=== PATIENT | male | born 1995 | race Caucasian/White ===

== ENCOUNTER 2017-07-04 08:04 | Day surgery (SDC) | payer OTHER, MEDICAID ==
[2017-07-04] MEDS ORDERED: LIDOCAINE 4% SOLUTION 50 ML BTL (09:07)
[2017-07-04] MEDS ORDERED: MIDAZOLAM 1 MG/ML 2 ML INJ ×2 (09:47)
[2017-07-04] MEDS ORDERED: FENTAnyl 50 MCG/ML VIAL (09:47)
== END 2017-07-04 10:47 | disposition home or self-care (01) ==
LOC: GIL 08:04
DX: K21.0 Gastro-esophageal reflux disease with esophagitis (principal)
CPT/HCPCS: 43239; 88305; 88312; 88313

== ENCOUNTER 2017-08-29 14:26 | Inpatient (IN) | payer OTHER ==
[2017-08-29] MEDS ORDERED: ONDANSETRON 4 MG TAB PO (17:00)
[2017-08-29] MEDS ORDERED: METOCLOPRAMIDE 10 MG INJ IV (17:00)
[2017-08-29] MEDS ORDERED: ONDANSETRON 4 MG INJ IV (17:00)
[2017-08-29] MEDS ORDERED: HYDROCODONE/APAP (5/325) TAB PO (17:00)
[2017-08-29] MEDS: CEFTRIAXONE 1 GM/50 ML (PMX) 50 ML IVPB (17:54)
[2017-08-29] MEDS: ACETAMINOPHEN 325 MG TAB PO (20:12)
[2017-08-30] MEDS: ACETAMINOPHEN 325 MG TAB PO ×2 (02:17→17:44)
[2017-08-30 04:13] LABS: ADD MAN DIFF? NO
[2017-08-30 04:14] LABS: BASOPHILS % 0.2 % (0.0-2.0); HEMOGLOBIN 13.9 g/dl (14.0-18.0); LYMPHOCYTES # 0.7 10^3/ul (0.8-2.9); LYMPHOCYTES % 5.9 % (15.0-51.0); MEAN CORPUSCULAR HEMOGLOBIN 29.1 pg (29.0-33.0); MEAN CORPUSCULAR HGB CONC 33.9 g/dl (32.0-37.0); MEAN CORPUSCULAR VOLUME 85.8 fl (82.0-101.0); MEAN PLATELET VOLUME 9.9 fl (7.4-10.4); MONOCYTE # 0.6 10^3/ul (0.3-0.9); MONOCYTES % 4.7 % (0.0-11.0); NEUTROPHIL # 11.1 10^3/ul (1.6-7.5); NEUTROPHILS % 88.9 % (39.0-77.0); PLATELET COUNT 166 10^3/UL (140-415); RED BLOOD COUNT 4.78 10^6/ul (4.70-6.10); RED CELL DISTRIBUTION WIDTH 13.4 % (11.5-14.5)
[2017-08-30 04:14] LABS: WHITE BLOOD COUNT 12.5 10^3/ul (4.8-10.8)
[2017-08-30 04:38] LABS: ANION GAP 16 (8-16); BLOOD UREA NITROGEN 16 mg/dl (7-20); CALCIUM 9.3 mg/dl (8.4-10.2); CARBON DIOXIDE 26 mmol/L (21-31); CHLORIDE 104 mmol/L (97-110); CREATININE 0.94 mg/dl (0.61-1.24); GLUCOSE 120 mg/dl (70-220); MAGNESIUM 1.9 mg/dl (1.7-2.5); PHOSPHORUS 2.6 mg/dl (2.5-4.9); POTASSIUM 4.1 mmol/L (3.5-5.1); SODIUM 142 mmol/L (135-144)
[2017-08-30] MEDS: ENOXAPARIN 40 MG/0.4 ML SYG SC (09:00)
[2017-08-30] MEDS ORDERED: VANCOMYCIN IV PER PHARMACY XX (12:30)
[2017-08-30] MEDS: VANCOMYCIN 1.5 GM in SOD CHLORIDE 0.9% 250 ML IVPB (14:22)
[2017-08-30] MEDS: SOD CHLORIDE 0.9% 100 ML (14:59)
[2017-08-30] MEDS: IOHEXOL 300MG/ML 150 ML BTL (14:59)
[2017-08-30] MEDS: VANCOMYCIN 1 GM 250 ML IVPB (22:28)
[2017-08-31] MEDS: VANCOMYCIN 1 GM 250 ML IVPB ×2 (06:15→14:40)
[2017-08-31 06:21] LABS: ADD MAN DIFF? NO
[2017-08-31 06:27] LABS: WHITE BLOOD COUNT 7.9 10^3/ul (4.8-10.8)
[2017-08-31 06:27] LABS: BASOPHILS % 0.4 % (0.0-2.0); EOSINOPHILS # 0.1 10^3/ul (0.0-0.5); EOSINOPHILS % 1.1 % (0.0-7.0); HEMATOCRIT 41.1 % (42.0-52.0); HEMOGLOBIN 14.1 g/dl (14.0-18.0); LYMPHOCYTES # 1.8 10^3/ul (0.8-2.9); LYMPHOCYTES % 22.9 % (15.0-51.0); MEAN CORPUSCULAR HEMOGLOBIN 29.3 pg (29.0-33.0); MEAN CORPUSCULAR HGB CONC 34.3 g/dl (32.0-37.0); MEAN CORPUSCULAR VOLUME 85.4 fl (82.0-101.0); MEAN PLATELET VOLUME 10.8 fl (7.4-10.4); MONOCYTE # 1.1 10^3/ul (0.3-0.9); MONOCYTES % 13.4 % (0.0-11.0); NEUTROPHIL # 4.9 10^3/ul (1.6-7.5); NEUTROPHILS % 61.9 % (39.0-77.0); PLATELET COUNT 184 10^3/UL (140-415); RED BLOOD COUNT 4.81 10^6/ul (4.70-6.10); RED CELL DISTRIBUTION WIDTH 13.2 % (11.5-14.5)
[2017-08-31 06:47] LABS: ANION GAP 15 (8-16); BLOOD UREA NITROGEN 13 mg/dl (7-20); CALCIUM 9.2 mg/dl (8.4-10.2); CARBON DIOXIDE 28 mmol/L (21-31); CHLORIDE 104 mmol/L (97-110); CREATININE 0.88 mg/dl (0.61-1.24); GLUCOSE 108 mg/dl (70-220); MAGNESIUM 2.1 mg/dl (1.7-2.5); PHOSPHORUS 3.5 mg/dl (2.5-4.9); POTASSIUM 3.9 mmol/L (3.5-5.1); SODIUM 143 mmol/L (135-144)
[2017-08-31] MEDS: ENOXAPARIN 40 MG/0.4 ML SYG SC (09:00)
[2017-08-31 14:14] LABS: VANCOMYCIN,TROUGH 7.6 ug/ml (10.0-20.0)
[2017-08-31] MEDS: IOHEXOL 300MG/ML 30 ML BTL (14:42)
[2017-08-31] MEDS: SOD CHLORIDE 0.9% 500 ML (14:42)
[2017-08-31] MEDS ORDERED: LIDOCAINE 2% JELLY 30 ML TOP (15:00)
[2017-08-31] MEDS: NACL 0.9% 3 ML SYG IV (22:35)
[2017-08-31] MEDS: VANCOMYCIN 1.25 GM in SOD CHLORIDE 0.9% 250 ML IVPB (22:35)
[2017-09-01] MEDS: VANCOMYCIN 1.25 GM in SOD CHLORIDE 0.9% 250 ML IVPB ×2 (05:13→13:56)
[2017-09-01] MEDS: DOCUSATE SODIUM 100 MG CAP PO (11:09)
[2017-09-01] MEDS: MAGNESIUM HYDROXIDE 30ML CUP PO (11:09)
== END 2017-09-01 20:50 | DRG 698 ==
LOC: MS2 08-30 01:59
DX: T83.511A Infection and inflammatory reaction due to indwelling urethral catheter, initial encounter (principal); A41.1 Sepsis due to other specified staphylococcus; N39.0 Urinary tract infection, site not specified; N35.9 Urethral stricture, unspecified
CPT/HCPCS: 72192; 74177; 80048; 80202; 83605; 83735; 84100; 85025; 87040; 87086

== ENCOUNTER 2017-09-17 08:36 | Day surgery (SDC) | payer OTHER ==
[~2017-09-17 08:36] MED LIST: LIDOCAINE 2% (SDV) 5 ML INJ
[2017-09-17] MEDS: VANCOMYCIN 1 GM (PMX) 250 ML IVPB (09:27)
[2017-09-17] MEDS ORDERED: IOHEXOL 300MG/ML 30 ML BTL (10:42)
[2017-09-17] MEDS ORDERED: MIDAZOLAM 1 MG/ML 2 ML INJ (10:54)
[2017-09-17] MEDS ORDERED: PROPOFOL 20 ML (10:54)
[2017-09-17] MEDS ORDERED: FENTAnyl 50 MCG/ML VIAL (10:54)
[2017-09-17] MEDS ORDERED: ONDANSETRON 4 MG INJ (10:55)
[2017-09-17] MEDS ORDERED: METOCLOPRAMIDE 10 MG INJ (10:55)
[2017-09-17] MEDS ORDERED: DEXAMETHASONE 4 MG/ML 1 ML INJ (10:55)
[2017-09-17] MEDS ORDERED: FAMOTIDINE 20 MG INJ (10:55)
[2017-09-17] MEDS ORDERED: KETOROLAC 15 MG INJ IV (11:00)
[2017-09-17] MEDS ORDERED: MEPERIDINE 25 MG INJ IV (11:00)
[2017-09-17] MEDS ORDERED: FENTAnyl 50 MCG/ML VIAL IV ×2 (11:00)
[2017-09-17] MEDS ORDERED: ONDANSETRON 4 MG INJ IV (11:00)
[2017-09-17] MEDS ORDERED: OXYCODONE/ACETAMINOPHEN (5/325) TAB PO (11:00)
[2017-09-17] MEDS ORDERED: HYDROmorphONE (0.2 MG/ML) 10ML SYG IV ×3 (11:00)
[2017-09-17] MEDS ORDERED: hydrALAzine 20 MG INJ IV (11:00)
[2017-09-17] MEDS ORDERED: LABETALOL HCL 20MG INJ IV (11:00)
[2017-09-17] MEDS ORDERED: ROCURONIUM 50 MG INJ (11:19)
[2017-09-17] MEDS ORDERED: NEOSTIGMINE 3 MG/3 ML SYRINGE (11:19)
[2017-09-17] MEDS ORDERED: GLYCOPYRROLATE 0.4 MG INJ (11:19)
== END 2017-09-17 13:22 | disposition home or self-care (01) ==
LOC: SDS 08:36
DX: N13.5 Crossing vessel and stricture of ureter without hydronephrosis (principal); R33.9 Retention of urine, unspecified
CPT/HCPCS: 52275